=== PATIENT | female | born 1970 | race Caucasian/White ===

== ENCOUNTER 2023-03-25 06:00 | Outpatient (RCR) | payer OTHER, SELFPAY | END 2023-04-24 23:59 | disposition home or self-care (01) | LOC: MOT 06:00 | PROVIDERS: Visit Provider Orthopaedic Surgery | DX: S62.522A Displaced fracture of distal phalanx of left thumb, initial encounter for closed fracture (principal); Y99.9 Unspecified external cause status | CPT/HCPCS: 97018; 97022; 97110; 97140; 97166 ==